=== PATIENT | female | born 1960 | race Caucasian/White ===

== ENCOUNTER 2021-07-02 10:19 | Outpatient (CLI) | payer BC, SELFPAY ==
--- NOTE | ~2021-07-02 | MR_ITS ---
EXAMINATION: MR knee RT wo con DATE: 07/02/2021 11:07 INDICATION: Right knee pain. TECHNIQUE: Magnetic resonance imaging (MRI) of the right knee was performed without intravenous contr ast. Sequences included axial PD-weighted FS FSE, coronal PD-weighted FSE and PD-weighted FS FSE, sag ittal PD-weighted FSE, and sagittal T2-weighted FS FSE. COMPARISON: None. FINDINGS: Medial compartment: Medial meniscus is normal. There is cartilage surface irregularity of tibial condyle. There is partia l-thickness cartilage loss of femoral condyle, shallow at the central and medial articular surface an d deep at the posterior articular surface. There are tiny osteophytes. Lateral compartment: Lateral meniscus is normal. There is cartilage surface irregularity of tibial condyle and femoral con dyle. Tiny osteophytes are noted. Patellofemoral compartment: There is full-thickness cartilage loss of patellar lateral facet and median ridge and deep partial th ickness cartilage loss of patellar medial facet with mild subchondral edema-like marrow signal intens ity. There is partial-thickness cartilage loss of trochlea, deep at the central trochlea with mild ruelas bchondral edema-like marrow signal intensity. Osteophytes are noted. Ligaments and tendons: The anterior and posterior cruciate ligaments are normal. There are changes of prior sprains of tibia l collateral ligament and medial collateral ligament characterized by increased signal intensity prox imally. There is mild patellar tendinopathy. Fluid: There is a small knee joint effusion. There is trace fluid in a Sandoval's cyst. There is mild prepatell ar and superficial infrapatellar bursitis. IMPRESSION: 1. Severe chondrosis of patellofemoral compartment, moderate chondrosis of medial compartment, and mi ld chondrosis of lateral compartment. 2. Small knee joint effusion. Reviewed, dictated and finalized at location A. TS OFFICIAL IMPRESSION: 1. Severe chondrosis of patellofemoral compartment, moderate chondrosis of medi al compartment, and mild chondrosis of lateral compartment. 2. Small knee joint effusion.
== END 2021-07-02 10:20 ==
PROVIDERS: PCP Emergency Medicine; Visit Provider Orthopaedic Surgery
DX: M25.461 Effusion, right knee (principal)
CPT/HCPCS: 73721